=== PATIENT | male | born 1995 | race Caucasian/White ===

== ENCOUNTER 2017-12-11 17:49 | Emergency (ER) | payer OTHER ==
[~2017-12-11] VITALS: Ht 167.6 cm; Wt 78.5 kg
[2017-12-11 17:56] VITALS: Ht 167.6 cm; Wt 78.5 kg
[2017-12-11 18:54] LABS: PLATELET COUNT 264 x10^3mcL (130-400); RED CELL DISTRIBUTION WIDTH 13.5 % (11.5-14.5)
[2017-12-11 18:58] LABS: BASOPHIL % 2.2 % (0-2)
[2017-12-11 19:10] LABS: CALCIUM 9.2 mg/dL (8.5-10.1); CARBON DIOXIDE 27.7 mmol/L (21-32); CHLORIDE SERUM 103 mmol/L (98-107); CREATININE SERUM 0.9 mg/dL (0.7-1.3); GFR1 > 60 mL/min; GLUCOSE SERUM 83 mg/dL (74-106); POTASSIUM SERUM 3.5 mmol/L (3.5-5.1); SODIUM SERUM 140 mmol/L (136-145)
[2017-12-11 19:14] LABS: ALBUMIN 4.3 g/dL (3.4-5.0); ALKALINE PHOSPHATASE 114 U/L (46-116); ALT/SGPT 42 U/L (16-63); AST/SGOT 22 U/L (15-37); BILIRUBIN TOTAL 0.5 mg/dL (0.20-1.00); TOTAL PROTEIN, SERUM 7.9 g/dL (6.4-8.2)
[2017-12-11 19:55] VITALS: BP 127/85
== END 2017-12-11 19:59 | disposition left against medical advice (07) ==
LOC: ED 17:49
PROVIDERS: Emergency Medicine
DX: R07.2 Precordial pain (principal); J45.909 Unspecified asthma, uncomplicated; F14.10 Cocaine abuse, uncomplicated
CPT/HCPCS: 36415; 83880

== ENCOUNTER 2018-09-29 18:40 | Emergency (ER) | payer OTHER ==
[~2018-09-29] VITALS: Ht 175.3 cm; Wt 76.2 kg
[2018-09-29 20:46] LABS: BASOPHIL % 0.6 % (0-2); PLATELET COUNT 274 x10^3mcL (130-400); RED CELL DISTRIBUTION WIDTH 13.9 % (11.5-14.5)
[2018-09-29 20:59] LABS: CALCIUM 9.1 mg/dL (8.5-10.1); CARBON DIOXIDE 29.7 mmol/L (21-32); CHLORIDE SERUM 105 mmol/L (98-107); CREATININE SERUM 1.1 mg/dL (0.7-1.3); GFR1 > 60 mL/min; GLUCOSE SERUM 114 mg/dL (74-106); POTASSIUM SERUM 3.9 mmol/L (3.5-5.1); SODIUM SERUM 141 mmol/L (136-145)
[2018-09-29 21:03] LABS: ALBUMIN 3.8 g/dL (3.4-5.0); ALKALINE PHOSPHATASE 135 U/L (46-116); ALT/SGPT 30 U/L (16-63); AST/SGOT 21 U/L (15-37); BILIRUBIN TOTAL 0.2 mg/dL (0.20-1.00); LIPASE 91 IU/L (73-393); TOTAL PROTEIN, SERUM 7.6 g/dL (6.4-8.2)
[2018-09-29 22:00] VITALS: BP 133/95
== END 2018-09-29 22:00 | disposition home or self-care (01) ==
LOC: ED 18:40
PROVIDERS: Emergency Medicine
DX: R10.13 Epigastric pain (principal); J45.909 Unspecified asthma, uncomplicated; R07.89 Other chest pain; R06.02 Shortness of breath; Z98.890 Other specified postprocedural states
CPT/HCPCS: 36415